=== PATIENT | female | born 1970 | race American Indian/Alaskan Native ===

== ENCOUNTER 2019-07-22 08:37 | Emergency (ER) | payer SELFPAY ==
[2019-07-22 08:51] VITALS: BP 237/93
--- NOTE | 2019-07-22 11:43 | Emergency Department Report ---
Chief Complaint: Extremity Injury, Lower Stated Complaint: PAIN IN KNEE/BACK Time Seen by Provider: 07/22/19 11:38 - HPI History of Present Illness: 48-year-old obese female presents to the emergency room complaining of left knee pain. Patient states that she was avoiding a car when she fell on the curb on her left knee. Patient reports this happened on Monday. Patient reports she has been able to stand and work but standing too long make it worse. Patient reports that she took Tylenol for pain which reports did not help. Patient does have hypertension and has taken her last lisinopril yesterday. She denies any chest pain shortness of breathing headache. - Exam Vital Signs: Vital Signs 07/22/19 08:51 Temperature 99.0 F Pulse Rate 70 Respiratory 16 Rate Blood Pressure 237/93 O2 Sat by Pulse 97 Oximetry Physical Exam: Patient's alert and oriented 3 no acute distress. Obese Left knee full range of motion minimal tenderness to palpate no swelling appreciated, left ankle full range of motion mouth swelling rectal lateral malleolus appears to be more fat and swelling minimal tenderness to palpate Patient is ambulating without difficulty. MSE screening note: Focused history and physical exam performed. Due to findings the following was ordered: 48-year-old obese female presents to the emergency room complaining of left knee pain. Patient states that she was avoiding a car when she fell on the curb on her left knee. Patient reports this happened on Monday. Patient reports she has been able to stand and work but standing too long make it worse. Patient reports that she took Tylenol for pain which reports did not help. Patient does have hypertension and has taken her last lisinopril yesterday. She denies any chest pain shortness of breathing headache. Discussed the patient since she's been able to ambulate without difficulty except for pain that she would not need an x-ray. Discussed with patient she can follow up with Dr. Goodman. Also discussed with patient that she continues an Dax bandage around her knee to give support as well as ibuprofen or Aleve for pain management. ED Disposition for MSE Disposition: MED SCREENING EXAM-LEFT Is pt being admited?: No Does the pt Need Aspirin: No Condition: Stable Additional Instructions: Take ibuprofen or Aleve for pain management. Use a Dax bandage around her knee for support. Follow up with a primary care provider. I have recommended one below for her convenience. Referrals: NAVYA MCLEOD MD [Primary Care Provider] - 3-5 Days DEB MUNOZ MD [Staff Physician] - 3-5 Days
== END 2019-07-22 11:47 | disposition left against medical advice (07) ==
LOC: ED 08:37
DX: M25.562 Pain in left knee (principal); W18.39XA Other fall on same level, initial encounter; Y93.89 Activity, other specified; Y92.89 Other specified places as the place of occurrence of the external cause; Y99.8 Other external cause status